=== PATIENT | female | born 1985 | race Caucasian/White ===

== ENCOUNTER 2019-11-12 01:56 | Emergency (ER) | payer OTHER, SELFPAY ==
--- NOTE | ~2019-11-12 | CT_ITS ---
EXAMINATION: CT abdomen pelvis w con DATE: 11/12/2019 03:16 INDICATION: Right flank pain. Right lower quadrant guarding. TECHNIQUE: Computed tomography (CT) of the abdomen and pelvis was performed with 100 cc Omnipaque 350 intravenous contrast. Automated exposure control and iterative reconstruction technique were employe d. Exam dose: 213.75 mGy-cm total exam DLP. COMPARISON: None. FINDINGS: The lung bases are clear. Normal heart size. No pericardial or pleural effusion. The liver, gallbladder, bile ducts, spleen, pancreas, pancreatic duct, and adrenal glands are unremar kable. No renal mass lesion is evident. There is evidence of right ascending urinary tract infection with ur othelial enhancement of the right ureter and right renal pelvis and right periureteral stranding. No evidence of pyelonephritis. No urinary tract calculus or hydroureter is evident. Normal caliber of the abdominal aorta. No intraperitoneal or retroperitoneal or pelvic mass lesion or adenopathy or ascites. There is a normal appendix. There is a prominent amount fecal material within the colon. No bowel obs truction, pneumatosis or intraperitoneal free air. The urinary bladder, uterus and adnexal areas are unremarkable. Included skeletal structures are unremarkable. IMPRESSION: Ascending urinary tract infection is suggested; no pyelonephritis is noted Normal appendix Reviewed, dictated and finalized at [facility] Reviewed, dictated and finalized at [facility].
[2019-11-12 02:00] VITALS: BP 111/50; PULSE 88; RESP 18; TEMP 36.6; O2SAT 98
[2019-11-12] MEDS: KETOROLAC 30 MG/ML VIAL (*BKC) IV PUSH (02:35)
--- NOTE | 2019-11-12 02:35 | ED.GENADULT ---
HPI - General Adult General Chief complaint: Unspecified Stated complaint: lower back pain Source: patient Mode of arrival: ambulatory Limitations: no limitations History of Present Illness HPI narrative: This 34-year-old female with opioid use disorder on Suboxone BN having right low back pain the evening of 11/09. Initially the pain was mild and intermittent. Since yesterday morning the pain has increased in intensity, described as sharp and has became constant, made worse with movements of her trunk and hip. Around midnight she tried taking a shower to see if that would help with the pain. Flexing of the right hip markedly increased pain. There is no radiation into the buttocks or lower extremity. No L.E. weakness/numbness. Around 1:00 a.m. she had about a 10 minutes episode of the mid abdominal area. The back pain has now spread to include the left side of the back but is still primarily located on the right side and right flank area. She denies fevers chills nausea vomiting diarrhea. Pain is rated 7-8/10. She is on oral contraceptives. LMP 6 1 20. 2 para 1 About a week ago dysuria frequency and urgency which resolved after about a day and half using [id number] medications. Related Data Home Medications Medication Instructions Recorded Confirmed buprenorphine-naloxone [Suboxone] 1 film BUCCAL Q24H 11/12/19 11/12/19 venlafaxine [Effexor XR] See Rx Instructions .ROUTE .COMPLEX 11/12/19 11/12/19 Allergies Allergy/AdvReac Type Severity Reaction Status Date / Time No Known Allergies Allergy Unverified 02/23/18 13:05 Review of Systems Constitutional: Constitutional: Reports no additional constitutional complaints Respiratory: Respiratory: Denies cough and Denies dyspnea Gastrointestinal: Gastrointestinal: Reports no additional gastrointestinal complaints Genitourinary: Genitourinary: Reports no additional female genitourinary complaints Musculoskeletal: Musculoskeletal: Denies arthralgias and Denies muscle cramps Integumentary/Breasts: Skin/Breast: Denies rash Neurologic: Reports system reviewed and no additional complaints, except as documented PMF Past Medical History Medical History (Updated 11/12/19 @ 04:12 by Arnold Mcguire MD) Depression Social History Social History Gender identity (if verbalized by the patient): Female Exam Narrative: Exam Narrative: Appears in pain. Stands with slight hip flexion. The fully erect position causes in creased abdominal pain. Const: Orientation/consciousness: patient oriented x3 Resp: Auscultation: clear to auscultation bilaterally GI: GI Palp: Yes Tenderness to palpation present (GI) (RLQ tenderness, maximal tenderness at McBurney's point. ), Yes Guarding due to palpation present (GI) and Yes Rebound tenderness present Auscultation: absent bowel sounds Other: Negative Rovsing and Obturator sing. : General: Yes no CVA tenderness Back/Spine/Pelvis: Other: Bilateral lumbar and thoracic paraspinal muscle contraction. Stands slightly stooped over. Able to extend back 10 degrees and flex to 30 degrees, both movements worsen RLQ pain. Skin: General skin exam: normal color Neuro: General: patient oriented x3 Course Course Emergency Course: Discussed CT scan with radiologist. Findings are c/w right sided ascending UTI. Given Levaquin Severity and 50 mg IV. Patient's PCP is Dr. murillo she has seen him before but agrees to contact him on Monday 11/13 to be seen that day. Reevaluation(s) Date: 11/12/19 Time: 04:07 Reevaluation #2: Pain has subsided after Toradol 30 mg IV. Patient has had not had vomiting. Lab results reviewed with patient. She is agreeable to return if she has vomiting fevers or chills. Vital Signs Vital signs: Vital Signs Temperature 36.6 C 11/12/19 02:00 Pulse Rate 88 11/12/19 02:00 Respiratory Rate 18 11/12/19 02:00 Blood Pressure 111/50 L 11/12/19 02:00 Pulse Oximetry 98
[2019-11-12 02:39] LABS: Basophils Absolute Auto 0.04 K/mm3 (0.00-0.10); Basophils Percent Auto 0.3 % (0.0-1.0); Eosinophils Absolute Auto 0.17 K/mm3 (0.02-0.50); Eosinophils Percent Auto 1.1 % (1.0-6.0); Hematocrit 38.4 % (35.0-49.0); Hemoglobin 12.8 g/dL (12.0-15.0); Immature Granulocyte Absolute 0.05 K/mm3 (0.00-0.00); Immature Granulocyte Percent A 0.3 % (0.0-0.0); Lymphocytes Absolute Auto 2.84 K/mm3 (1.10-4.50); Mean Corpuscular HGB Conc 33.3 g/dL (32.0-36.0); Mean Corpuscular Hemoglobin 29.8 pg (27.0-31.0); Mean Corpuscular Volume 89.5 fL (78.0-102.0); Monocytes Absolute Auto 0.93 K/mm3 (0.10-0.90); Monocytes Percent Auto 6.2 % (2.0-11.0); Neutrophils Absolute Auto 10.9 K/mm3 (1.7-7.2); Neutrophils Percent Auto 73.1 % (50.0-70.0); Platelet Count Result 474 K/mm3 (150-420); Red Blood Count 4.29 M/mm3 (4.20-5.40); Red Cell Distribution Width 12.7 % (11.6-14.4); White Blood Count 14.9 K/mm3 (4.8-10.8)
[2019-11-12 02:40] LABS: Add Urine Microscopic? YES; Appearance Urine Clear (Clear); Bilirubin Urine Negative (Negative); Blood Urine Negative (Negative); Color Urine Yellow (Yellow); Glucose Urine UA Negative (Negative); Ketones Urine Negative (Negative); Leukocyte Esterase Ur Negative (Negative); Nitrate Urine Negative (Negative); Protein Urine Trace (Negative); Specific Grav Ur 1.015 (1.010-1.020); Urobilinogen Urine 0.2 mg/dL (0.2-1.0)
[2019-11-12 02:45] LABS: Bacteria Urine Trace /hpf; Pregnancy On Board Control Positive; RBC Urine 0-2 /hpf (0-2); Specific Gravity Ur 1.015 (1.010-1.035); Squamous Epithelial Cell Urine Few /hpf (Few); Urine Pregnancy Test Negative; WBC Urine 0-3 /hpf (0-3)
[2019-11-12 02:47] LABS: Anion Gap 8.7 mmol/L (7-16); Blood Urea Nitrogen 10 mg/dL (7-18); Calcium 8.7 mg/dL (8.5-10.1); Carbon Dioxide 33 mmol/L (21-32); Chloride 98 mmol/L (98-108); Estimated CRCL calculation 69 ml/min; Estimated Glomerular Filt Rate > 60; Glucose 90 mg/dL (70-99); Osmolality Calculated 281 mOsm/kg (285-295); Potassium 3.7 mmol/L (3.5-5.1); Sodium 136 mmol/L (136-145)
[2019-11-12 04:10] VITALS: BP 112/60; PULSE 70; RESP 16; TEMP 36.1; O2SAT 100
--- NOTE | 2019-11-12 05:14 | PC.NURSE ---
at desk demanding to leave, explained with critical patient
[2019-11-12 08:35] VITALS: BP 120/81; PULSE 72; RESP 20; TEMP 36.6
== END 2019-11-12 05:37 | disposition home or self-care (01) ==
PROVIDERS: Emergency Provider Family Medicine; PCP Internal Medicine
DX: F11.10 Opioid abuse, uncomplicated (principal); N12 Tubulo-interstitial nephritis, not specified as acute or chronic
CPT/HCPCS: 36415; 74177; 80048; 81001; 81025; 85025; 87077; 87086; 87088; 87186; 96365; 96375; 99283; 99284; J1885; J1956; Q9965

== ENCOUNTER 2021-06-21 16:09 | Outpatient (CLI) | payer OTHER, SELFPAY ==
[2021-06-21 16:57] LABS: Influenza Control Valid (Valid); SARS-CoV-2 Ag Positive (Negative)
== END 2021-06-21 16:10 | disposition home or self-care (01) ==
LOC: CHSLAB 16:12
PROVIDERS: PCP Family Medicine; Visit Provider Family Medicine
DX: U07.1 COVID-19 (principal); J02.9 Acute pharyngitis, unspecified
CPT/HCPCS: 87426; 87804; C9803

== ENCOUNTER 2023-01-06 17:22 | Outpatient (CLI) | payer OTHER, SELFPAY | END 2023-01-06 17:23 | disposition home or self-care (01) | LOC: ANHLAB 17:25 | PROVIDERS: PCP Family Medicine; Visit Provider Obstetrics & Gynecology | DX: Z32.01 Encounter for pregnancy test, result positive (principal); N91.0 Primary amenorrhea | CPT/HCPCS: 36415; 84702 ==

== ENCOUNTER 2023-06-15 14:15 | Outpatient (CLI) | payer OTHER, SELFPAY ==
[2023-06-15] VITALS (7 sets, daily range): BP systolic 100–123; BP diastolic 54–67; PULSE 71–91
--- NOTE | ~2023-06-15 | US_ITS ---
EXAMINATION: US OB BPP wo non-stress DATE: 06/15/2023 17:01 INDICATION: Nonreactive nonstress test during third trimester . TECHNIQUE: Real-time pelvic ultrasound was performed. The interpreting radiologist was not present fo r the study. COMPARISON: None. FINDINGS: There is a single living fetus in breech presentation. The placenta is fundal. heart rate is 1 25 beats per minute (bpm). Biophysical profile performed by the technologist: breathing (30 sec sustained breathing in 30 minutes): 0 out of 2 movement (3 gross body movements in 30 minutes): 2 out of 2 tone (one episode of gietatk-uwgrmbsiy-peldozk limb movement): 2 out of 2 Amniotic fluid pocket (2 cm): 2 out of 2 Total score: 8 out of 8 IMPRESSION: 1. Single living fetus in breech presentation with heart rate of 125 bpm. 2. Biophysical profile 6 out of 8. A few single breathing motions were observed by the rack cleaner b ut no points given for 30 seconds sustained breathing over 30 minutes of observation. Reviewed, dictated and finalized at [facility]. R PACKER IMPRESSION: 1. Single living fetus in breech presentation with heart rate of 125 bpm. 2. Biophysical profile 6 out of 8. A few single breathing motions were observe d by the rack cleaner but no points given for 30 seconds sustained breathi ng over 30 minutes of observation.
[2023-06-15 14:55] LABS: Basophils Absolute Auto 0.1 K/mm3 (0.0-0.1); Basophils Percent Auto 0.5 % (0.2-1.2); Eosinophils Absolute Auto 0.3 K/mm3 (0-0.3); Eosinophils Percent Auto 1.6 % (0-4.4); Hematocrit 32.8 % (37.0-47.0); Immature Granulocyte Absolute 0.53 K/mm3 (0.00-0.031); Lymphocytes Absolute Auto 2.48 K/mm3 (0.9-3.2); Lymphocytes Percent Auto 14.1 % (18.3-44.2); Mean Corpuscular HGB Conc 33.5 g/dl (32-36); Mean Corpuscular Hemoglobin 31.5 pg (26-34); Mean Platelet Volume 10.8 fl (7.4-10.4); Monocytes Absolute Auto 1.1 K/mm3 (0.1-0.6); Monocytes Percent Auto 6.2 % (2.6-8.5); Neutrophils Absolute Auto 13.2 K/mm3 (1.3-6.7); Neutrophils Percent Auto 74.6 % (45.5-73.1); Platelet Count Result 290 k/mm3 (150-375); Red Blood Count 3.49 M/mm3 (4.2-5.4); White Blood Count 17.6 K/mm3 (4.5-10.0)
[2023-06-15 14:56] LABS: Appearance Urine Clear (Clear); Bilirubin Urine Negative (Negative); Blood Urine Negative (Negative); Color Urine Yellow (Yellow); Glucose Urine UA Negative (Negative); Ketones Urine Negative (Negative); Leukocyte Esterase Ur Negative LEU/UL (NEGATIVE); Nitrate Urine Negative (Negative); Protein Urine Negative (Negative); Specific Grav Ur 1.008 (1.001-1.035); Urobilinogen Urine 0.2 mg/dL (<2.0)
[2023-06-15 14:58] LABS: Add Urine Microscopic? NO
[2023-06-15 15:02] LABS: Creatinine Urine 33.5 mg/dL; Total Protein Urine Random 16 mg/dL; Ur Ttl Prot Creatinine Ratio 0.48 mg/mg (0-0.20)
[2023-06-15 15:07] LABS: Alanine Aminotransferase 26 U/L (6-35); Albumin Level 3.3 g/dL (3.5-5.1); Alkaline Phosphatase 107 U/L (38-126); Anion Gap 7 mmol/L (8-16); Aspartate Amino Transferase 26 U/L (14-36); Bilirubin,Total 0.4 mg/dL (0.2-1.3); Blood Urea Nitrogen 3 mg/dL (7-17); Calcium 8.7 mg/dL (8.4-10.2); Carbon Dioxide 23 mmol/L (22-30); Chloride 106 mmol/L (98-107); Estimated Glomerular Filt Rate > 60; Glucose 93 mg/dL (65-110); Potassium 3.7 mmol/L (3.4-5.0); Sodium 136 mmol/L (137-145)
--- NOTE | 2023-06-15 15:55 | PC.NURSE ---
Called Dr. Casillas with BPs, lab results and pt status. Informed of pt complaining of a headache x5days, and dizziness. Pt states that when she got up this AM, the room was spinning . Also informed of nonreactive NST with a variable noted and occasional contractions noted on tracing. Pt states that she only feels an occasional contraction. Orders received.
[2023-06-15] MEDS: ACETAMINOPHEN/BUTALBITAL/CAFFEINE 325-50-40 MG TABLET (FIORICET) 1 TAB PO (16:03)
--- NOTE | 2023-06-15 17:00 | PC.NURSE ---
See [facility] notes for FHTs after NST.
--- NOTE | 2023-06-15 17:15 | PC.NURSE ---
Pt states that she hasn't eaten all day. FOB went to get food. Will continue to monitor until pt eats to see if tracing becomes reactive.
--- NOTE | 2023-06-15 19:50 | PC.NURSE ---
1848- called and made aware of BPP of 11/13 as well now reactive strip and relieved H/A. orders received. ok to discharge
== END 2023-06-15 19:56 | disposition home or self-care (01) ==
LOC: ANHOBOP 14:22 → ANHOBPP 14:23
PROVIDERS: PCP Family Medicine; Visit Provider Obstetrics & Gynecology
DX: O13.9 Gestational [pregnancy-induced] hypertension without significant proteinuria, unspecified trimester (principal)
CPT/HCPCS: 36415; 59025; 76819; 80053; 81003; 82570; 84156; 84550; 85025; 87086; 87088; 99199; A9270; J2704

== ENCOUNTER 2023-07-20 06:52 | Inpatient (IN) | payer OTHER, SELFPAY ==
[2023-07-20] VITALS (25 sets, daily range): BP systolic 107–155; BP diastolic 52–85; PULSE 60–83; RESP 16–18; TEMP 36.6–37.6; O2SAT 99–100; BMI 25.8
--- NOTE | 2023-07-20 07:13 | P.PNAN_ITS ---
Anes - Initial Pre Proc Eval Procedure: Operation Date: 07/20/23 07:30 Proposed Procedures p Section - Brianna Casillas MD Date/Time: 07/20/23 07:13 Surgeon: Brianna Casillas MD Pre Op Diagnosis: Breech Presentation/C/Section Patient Data Age: 38 Gender: F Height: Weight: Last Vital Signs O2 Del Method Room Air 07/20/23 07:04 Allergies Allergy/AdvReac Type Severity Reaction Status Date / Time No Known Allergies Allergy Verified 06/24/23 13:21 Home Medications Medication Instructions Recorded Confirmed Type buprenorphine 12 mg-naloxone 3 mg 1 film buccal Q24H 11/12/19 06/24/23 History sublingual film (Suboxone) ferrous sulfate 325 mg (65 mg 325 mg PO DAILY 06/24/23 06/24/23 History iron) tablet vits no.126-ferrous fum 1 tablet PO DAILY 06/24/23 06/24/23 History 28 mg iron-folic acid 800 mcg tablet (Classic ) hydrocodone 5 mg-acetaminophen 325 1 tablet PO Q3H PRN Breakthrough 07/24/23 Rx mg tablet Pain Rated 4-6 #25 tabs ibuprofen 600 mg tablet 600 mg PO Q6H #30 tabs 07/24/23 Rx Patient hx anesthesia problems: none Family hx anesthesia problems: none Results Review: All pre-operative results and documents have been reviewed as part of the pre- operative evaluation. [facility] Past Medical History Medical History (Updated 07/24/23 @ 08:09 by Danya Higginbotham CNM) Anxiety Asthma Depression Opioid use disorder Family History Family History (Updated 06/24/23 @ 13:31 by Sarah Cosby RN) Father Rheumatoid arthritis Social History Social History Smoking status: Current every day smoker Tobacco type: cigarettes Second hand tobacco smoke exposure: No Substance use: never Do You Feel Safe in your Home?: Yes Lack of Transportation: No Lack of Food: Never True Current Housing: I Have Housing Concerned About Future Housing: No Difficulty Paying Gas/Electric Bills: No Difficulty Paying for Meds: No Currently Unemployed: No Education: Trade/Vocational Certificate Difficulty w/ Childcare or Family Care: No Gender identity (if verbalized by the patient): Female Spiritual care concerns: No Anes - Eval Final PreProcedure Day of Procedure 07/20/23 07:13 Patient weight: obese Heart: regular rate and rhythm Lungs: clear to auscultation and normal air movement Airway: Mallampati scale class II Neurological: alert and oriented Last oral intake: >/= 8 hours ASA classification: III Emergent: no Anesthetic plan: proceed Anesthesia type and monitoring: regional spinal and standard monitoring Results Review: All pre-operative results and documents have been reviewed as part of the pre- operative evaluation. Informed Consent: The patient's anesthetic plan and its attendant risks and benefits were discussed with the patient/family/POA. Questions were solicited and answers provided to the satisfaction of the patient/family/POA.
[2023-07-20 07:20] LABS: Basophils Absolute Auto 0.1 K/mm3 (0.0-0.1); Basophils Percent Auto 0.5 % (0.2-1.2); Eosinophils Absolute Auto 0.2 K/mm3 (0-0.3); Eosinophils Percent Auto 1.3 % (0-4.4); Hematocrit 42.1 % (37.0-47.0); Hemoglobin 13.6 g/dL (12.0-15.0); Immature Granulocyte Absolute 0.38 K/mm3 (0.00-0.031); Immature Granulocyte Percent A 2.3 % (0-0.5); Lymphocytes Absolute Auto 4.14 K/mm3 (0.9-3.2); Lymphocytes Percent Auto 25.2 % (18.3-44.2); Mean Corpuscular HGB Conc 32.3 g/dl (32-36); Mean Corpuscular Hemoglobin 31.1 pg (26-34); Mean Corpuscular Volume 96.1 fl (80-100); Mean Platelet Volume 11.4 fl (7.4-10.4); Monocytes Absolute Auto 1.2 K/mm3 (0.1-0.6); Monocytes Percent Auto 7.3 % (2.6-8.5); Neutrophils Absolute Auto 10.4 K/mm3 (1.3-6.7); Neutrophils Percent Auto 63.4 % (45.5-73.1); Platelet Count Result 294 k/mm3 (150-375); Red Blood Count 4.38 M/mm3 (4.2-5.4); White Blood Count 16.4 K/mm3 (4.5-10.0)
[2023-07-20] MEDS: ACETAMINOPHEN 500 MG TABLET 1000 MG PO (07:20)
[2023-07-20] MEDS: LACTATED RINGERS 1,000 ML 125 ML IV CONT (07:25)
[2023-07-20] MEDS: ONDANSETRON INJ 4 MG/2 ML VIAL IV PUSH (07:25)
[2023-07-20] MEDS: FAMOTIDINE 20 MG/2 ML VIAL IV PUSH (07:25)
--- NOTE | 2023-07-20 07:26 | PM.IMHP ---
H&P: HPI History of Present Illness Date/Time: 07/20/23 07:26 Chief Complaint: Term , breech Narrative: 38-year-old multiparous female at 39 weeks gestation with a breech presentation. we would perform delivery. She understands the procedure. Has been explained to her in detail. She understands the risk. She understands that injuries may occur the result in hospitalization, more surgery, and severe illness. She understands there is risk of hemorrhage and infection. She denies any nausea, vomiting, fever, chills. She denies any chest pain shortness of breath. Review of Systems Review of Systems: All systems reviewed & are unremarkable except as noted in HPI and below Constitutional: Constitutional: Denies chills, Denies fatigue, Denies fever(s) and Denies weakness Eyes: Eyes: Denies blurry vision, Denies change in vision, Denies loss of peripheral vision, Denies loss of vision, Denies other visual disturbances and Denies eye pain ENT: Denies vertigo, Denies dizziness, Denies hearing loss, Denies mouth pain, Denies nasal obstruction, Denies neck mass and Denies neck pain Cardiovascular: Cardiovascular: Denies chest pain, Denies diaphoresis, Denies syncope, Denies leg edema and Denies dyspnea Respiratory: Respiratory: Denies chest congestion, Denies cough, Denies hemoptysis, Denies dyspnea and Denies wheezing Gastrointestinal: Gastrointestinal: Denies abdominal pain, Denies constipation, Denies diarrhea, Denies nausea and Denies vomiting Genitourinary: Genitourinary: Denies hematuria, Denies change in libido, Denies nocturia, Denies genital lesions, Denies flank pain and Denies urinary urgency Musculoskeletal: Musculoskeletal: Denies abnormal gait, Denies back pain, Denies myalgias, Denies arthralgias, Denies joint swelling, Denies muscle weakness and Denies neck pain Integumentary/Breasts: Skin/Breast: Denies swelling, Denies breast pain, Denies breast mass, Denies dry skin, Denies nipple discharge, Denies unusual bruising and Denies jaundice Neurologic: Denies Neuro-related abnormal movements, Denies Abnormal speech present, Denies abnormal gait, Denies behavioral changes, Denies confusion, Denies vertigo, Denies dizziness, Denies syncope, Denies loss of vision, Denies memory loss, Denies convulsions and Denies weakness Psychiatric: Psychiatric: Denies abnormal sleep pattern, Denies behavioral changes, Denies change in libido, Denies confusion, Denies depression, Denies anhedonia and Denies memory loss Endocrine: Endocrine: Reports no additional endocrine complaints, Denies change in libido and Denies fatigue Hematologic/Lymphatic: Hematologic/Lymphatic: Reports no additional hematologic/lymphatic complaints Allergic/Immunologic: Allergic/Immunologic: Reports no additional allergic/immunologic complaints and Denies wheezing PMFSH Past Medical History Medical History (Updated 07/20/23 @ 07:27 by Brianna Casillas MD) Anxiety Asthma Depression Opioid use disorder Family History Family History (Updated 06/24/23 @ 13:31 by Sarah Cosby RN) Father Rheumatoid arthritis Social History Social History Smoking status: Current every day smoker Tobacco type: cigarettes Second hand tobacco smoke exposure: No Substance use: never Do You Feel Safe in your Home?: Yes Lack of Transportation: No Lack of Food: Never True Current Housing: I Have Housing Concerned About Future Housing: No Difficulty Paying Gas/Electric Bills: No Difficulty Paying for Meds: No Currently Unemployed: No Education: Trade/Vocational Certificate Difficulty w/ Childcare or Family Care: No Gender identity (if verbalized by the patient): Female Spiritual care concerns: No Meds Home Medications and Allergies Home Medications Medication Instructions Recorded Confirmed Type buprenorphine 12 mg-naloxone 3 mg 1 film buccal Q24H 11/12/19 06/24/23 History sublingual film (Suboxone) ferrous s
--- NOTE | 2023-07-20 07:29 | WPDHPUPDATE1 ---
History and Physical Update Update Date/Time: 07/20/23 07:29 History and Physical has been reviewed, including an updated exam of the patient. There are NO changes in the patient's condition. Risks, benefits, and alternatives have been discussed and questions answered. Patient agrees to proceed with procedure.
[2023-07-20] MEDS: ceFAZolin 2 GM/D5W 50 ML 2 GM/50 ML BAG IVPB (07:37)
--- NOTE | 2023-07-20 08:33 | W.PM.OBCSD ---
OB - Delivery Note Procedure Delivery date: 07/20/23 Pre-op diagnosis: Breech Presentation Post-op Diagnosis: Same Procedure Performed: Primary Surgeon: Brianna Casillas MD Anesthesia type: Spinal Description of Procedure/Findings: The patient was taken the operating room.? She was prepped and draped in dorsal supine position with a leftward tilt.? This was done after spinal anesthetic was applied.? A low-transverse skin incision was made and carried down till of the fascia with the knife.? The fascial incision was made with the knife.? The fascial incision was extended laterally with Barros scissors.? The fascia was tented upward superiorly and inferiorly the rectus muscles were dissected off bluntly.? The rectus muscles were the midline.? The preperitoneal fat and peritoneum were dissected open bluntly at the superior aspect of the rectus muscles.? The peritoneal incision was extended superior and inferior with good position of bladder.? The uterine incision was made with a scalpel down to the level of the amniotic cavity.? The amniotic cavity was entered bluntly.? The infant was delivered.? The cord was clamped and cut and the was handed off to waiting pediatric staff.? Cord bloods were obtained.? The placenta was removed manually.? The uterus was exteriorized.? The uterus was cleared of all clots, debris and membranes.? The uterus was closed in 0 Vicryl running lock fashion.? An imbricating over a was placed along the incision line as well.? The uterus was returned to the abdomen.? The gutters were cleared of all clots and debris.? The fascia was closed with 0 Vicryl running fashion.? The subcutaneous tissue was irrigated pinpoint bleeders were cauterized.? The skin was closed with subcuticular absorbable swati.? The skin incision line was covered with glue.? The patient tolerated the procedure well.? She has taken recovery room in stable condition.? Sponge lap and needle counts were correct x2.? Estimated Blood Loss: 550 Complications: No immediate complications Condition: Stable [place] Baby Weeks of gestation at delivery: 39
[2023-07-20] MEDS: OXYTOCIN 30 UNITS/NS 500 ML 30 UNITS/500 ML BAG 125 UNITS IV CONT (09:39)
[2023-07-20] MEDS: MORPHINE SULFATE INJ (*CRX) 10 MG/ML AMP 2 MG IV PUSH (09:49)
[2023-07-20 10:42] LABS: Rapid Plasma Reagin Non-Reactive (NonReactive)
[2023-07-20] MEDS: KETOROLAC 15 MG/ML VIAL (*BKC) IV PUSH ×3 (11:00→23:28)
[2023-07-20] MEDS: LIDOCAINE 5% PATCH 1 PATCH TRANSDERM (11:01)
[2023-07-20] MEDS: BUPRENORPHINE/NALOXONE (*CRX) 4 MG/1 MG SL FILM 3 EACH SUBLINGUAL (11:18)
[2023-07-20] MEDS: SIMETHICONE 80 MG TAB.CHEW PO ×3 (13:14→23:30)
[2023-07-20] MEDS: DEXTROSE 5%/0.45% SOD CHL 1,000 ML 125 ML IV CONT (14:11)
--- NOTE | 2023-07-20 15:50 | PC.NURSE ---
1420 Introductions were made, then consulted with patient to assess needs related to . Mother led the conversation with her?plans to feed?her and the?experience so far. Encouraged understanding of the benefits of skin to skin (demonstrating unwrapping infant and placing upright on her chest), stimulating with massage touch, changing positions to encourage wakefulness, how to watch for early feeding cues, responsive feeding, feeding on demand (aiming for 8-12 times in 24 hours, about every 2-3 hours), milk production, building/maintaining a milk supply, duration of feeding, signs of adequate intake/output and how to record on the feeding sheet. Mother works well with her with encouragement and education. Reviewed positioning and ear, shoulder, hip alignment, supporting the breast to facilitate a deep latch, asymmetrical latch (off-center), leading with the chin with a big, open, wide gape and body close to mother. Mother states that Infant latched optimally to the both breasts in cross cradle position. Education given to the mother of how to visualize the suckling (with good rocking jaw motion), swallows (dropping of the lower jaw) and how to listen for drinking at the breast (the ka sound). She states that was able to maintain latch without pain to mother protecting the nipple with optimal positioning and latching. Reviewed comfort measures of healing with a warm, wet washcloth to rinse breast, then leave open to air-dry, good handwashing when or touching the breast/nipples to prevent infection. Mother voiced understanding of skin to skin, stimulating with massage touch, responsive feedings, hand expressed colostrum, talking to infant to encourage if it has been 2 -2.5 hours since the start of the last , to call if infant does not latch, or if there is discomfort with . Resources used for education were facilitated with the visual educational handouts/ tool/mom and baby guide, Inpatient resources provided with business card, feeding sheet, name written on the communication board, and the mom/baby guide. Parents voiced understanding of information, demonstrated learning and will call if there is a request for assistance. Reported to the Primary RN.
[2023-07-20] MEDS: DOCUSATE SODIUM 100 MG CAPSULE PO (16:34)
[2023-07-20] MEDS: ACETAMINOPHEN 325 MG TABLET 650 MG PO (16:41)
[2023-07-20] MEDS: HYDROcodone/acetaminophen (*CRX) 10-325 MG TABLET 1 TAB PO (20:12)
[2023-07-20] MEDS: HYDROcodone/acetaminophen (*CRX) 5-325 MG TABLET 1 TAB PO (23:28)
[2023-07-21] MEDS: ACETAMINOPHEN 325 MG TABLET 650 MG PO (02:56)
[2023-07-21 05:05] VITALS: BP 123/70; PULSE 83; RESP 18; TEMP 36.8; O2SAT 97
[2023-07-21 05:07] LABS: Basophils Absolute Auto 0.1 K/mm3 (0.0-0.1); Basophils Percent Auto 0.3 % (0.2-1.2); Eosinophils Absolute Auto 0.1 K/mm3 (0-0.3); Eosinophils Percent Auto 0.4 % (0-4.4); Hematocrit 30.5 % (37.0-47.0); Immature Granulocyte Absolute 0.24 K/mm3 (0.00-0.031); Lymphocytes Absolute Auto 1.96 K/mm3 (0.9-3.2); Lymphocytes Percent Auto 8.1 % (18.3-44.2); Mean Corpuscular HGB Conc 32.8 g/dl (32-36); Mean Corpuscular Hemoglobin 31.4 pg (26-34); Mean Corpuscular Volume 95.9 fl (80-100); Mean Platelet Volume 11.1 fl (7.4-10.4); Monocytes Absolute Auto 2.3 K/mm3 (0.1-0.6); Monocytes Percent Auto 9.4 % (2.6-8.5); Neutrophils Absolute Auto 19.4 K/mm3 (1.3-6.7); Neutrophils Percent Auto 80.8 % (45.5-73.1); Platelet Count Result 247 k/mm3 (150-375); Red Blood Count 3.18 M/mm3 (4.2-5.4); Red Cell Distribution Width 13.9 % (11.5-14.5); White Blood Count 24.1 K/mm3 (4.5-10.0)
[2023-07-21] MEDS: KETOROLAC 15 MG/ML VIAL (*BKC) IV PUSH (05:53)
[2023-07-21] MEDS: HYDROcodone/acetaminophen (*CRX) 10-325 MG TABLET 1 TAB PO ×6 (05:53→23:38)
[2023-07-21 08:05] VITALS: BP 120/65; PULSE 74; RESP 16; TEMP 37; O2SAT 98
[2023-07-21] MEDS: DOCUSATE SODIUM 100 MG CAPSULE PO ×2 (08:59→17:39)
[2023-07-21] MEDS: MULTIVIT/MIN/PREN/FOL AC/IRON TABLET 1 TAB PO (08:59)
[2023-07-21] MEDS: SIMETHICONE 80 MG TAB.CHEW PO ×5 (09:00→23:38)
--- NOTE | 2023-07-21 09:03 | PM.OBPNVD ---
OB - PN: Subj Subjective Date/time seen: 07/21/23 09:03 Interval history: POD#1 Incisional pain well controlled Increased abdominal pain radiating to neck and shoulders No nausea or vomiting Has not yet passed flatus OB - PN: Obj Data Labs 07/21/23 05:00 Labs: Laboratory Results - last 24 hr 07/20/23 07/21/23 07:14 05:00 WBC 24.1 H RBC 3.18 L Hgb 10.0 L D Hct 30.5 L MCV 95.9 MCH 31.4 MCHC 32.8 RDW 13.9 Plt Count 247 MPV 11.1 H Immature Gran % (Auto) 1.0 H Neut % (Auto) 80.8 H Lymph % (Auto) 8.1 L [place] % (Auto) 9.4 H Eos % (Auto) 0.4 Baso % (Auto) 0.3 Lymph # (Auto) 1.96 [place] # (Auto) 2.3 H Eos # (Auto) 0.1 Baso # (Auto) 0.1 Abs Immat Gran (auto) 0.24 H Absolute Neuts (auto) 19.4 H Absolute Nucleated RBC 0.0 Nucleated RBC % 0.0 RPR Non-reactive OB - PN A/P Plan day: 1 Comments: Discussed abdominal pain likely from slow bowel motility, recommend ambulation, simethicone, chewing gum, light diet; monitor for nausea and vomiting; recommend decreasing narcotics as much as able as these can contribute to slowing of bowels. Time Spent With Patient Time: Total time spent is greater than 50% in coordination of care (as documented) at patient's floor/unit and/or counseling patient: Review of Systems Review of Systems: All systems reviewed & are unremarkable except as noted in HPI and below Exam Const: General: in distress mild Orientation/consciousness: patient oriented x3 Resp: Effort & Inspection: normal respiratory effort GI: GI Palp: Yes Soft to palpation Other: mildly distended, mildly tender diffusely; incision c/d/i
--- NOTE | 2023-07-21 10:15 | PC.NURSE ---
Patient brought her own pump from home. Instructions given on cleaning, care, usage, that there should be no pain, pumping schedule for milk production, collection, and storage of human milk. Patient was assessed for correct placement, flange size, to pump for comfort and nipple stretching/stimulation for adequate milk production every 3 hours (8 times in 24 hours) 1-2 times at night.
[2023-07-21] MEDS: BUPRENORPHINE/NALOXONE (*CRX) 4 MG/1 MG SL FILM 3 EACH SUBLINGUAL (11:03)
--- NOTE | 2023-07-21 12:11 | WPDANLDPN2 ---
Anes-Prog Note L&D Date/Time: 07/21/23 12:11 Comfortable throughout: section Neuraxial method: spinal Epidural/Spinal procedure site: clean & non-tender Neuro status: Neuro function grossly intact. Cardiovascular status: normal Respiratory status: normal Airway patency: baseline Mental status: baseline Post-Op hydration status: normal Vital Signs: Last Vital Signs Temp 37.0 C 07/21/23 08:05 Pulse 74 07/21/23 08:05 Resp 16 07/21/23 08:05 BP 120/65 07/21/23 08:05 Pulse Ox 98 07/21/23 08:05 O2 Del Method Room Air 07/21/23 05:05 Pain score (VAS): 310 I/O: Intake & Output 07/20/23 07/21/23 07/21/23 23:59 07:59 15:59 Intake Total 600 100 300 Output Total 1625 500 500 Balance -1025 -400 -200 Post-procedural complaints: none Patient feedback: Patient satisfied with anesthetic care.
--- NOTE | 2023-07-21 12:14 | WPDANLDNPN2 ---
Anes-Prog Note L&D-Neuraxial Date/Time: 07/21/23 12:14 Neuraxial medications: intrathecal PF morphine Opiod-related complaints: none Patient feedback: Patient satisfied with post-operative pain management.
[2023-07-21] MEDS: IBUPROFEN 600 MG TABLET PO ×2 (12:25→20:33)
--- NOTE | 2023-07-21 14:19 | PC.NURSE ---
1145 Mother verbalizes she is able to independently latch infant with appropriate positioning and alignment. She denies any nipple discomfort and is responsively . is currently meeting outcomes for weight, output, jaundice, blood sugar and feeding frequencies of 8-12 times in 24 hours. Mother declines any additional assistance at this time. Information given on breast implants and . Mother is encouraged to call for assistance if her infant doesn?t latch, pain with latching, questions or concerns. Mother voiced understanding of information shared along with the mom/baby guide for an additional resource. Reported to the Primary RN.
--- NOTE | 2023-07-21 15:45 | PCCCNOTE ---
Care Coordination met with pt. and PAULA this afternoon (07/21/23) due to referral for Suboxone use during . CC spoke with pt. who confirms Suboxone use, she states Dr. Casillas has prescribed this medication and is aware of her continuous use during . CC spoke with Dr. Casillas who confirms he has prescribed this medication for pt. for several years due to an old opiate addiction. Pt. has been sober the duration of her affiliation with Dr. Palomares office. Per Dr. Casillas, pt. has a urine drug screen every office visit and is always negative. This is patients third child, she has a 14 year old and 5 year old daughter at home. Pt. has everything needed to safely bring baby home. She has no current or closed DCFS cases. Baby has a pending umbilical cord drug screen but has not shown any signs of withdrawal at this time. RN aware of referral and visit. Will follow.
[2023-07-21] MEDS: LIDOCAINE 5% PATCH 1 PATCH TRANSDERM (15:54)
[2023-07-22] MEDS: IBUPROFEN 600 MG TABLET PO ×3 (02:43→15:40)
[2023-07-22] MEDS: HYDROcodone/acetaminophen (*CRX) 10-325 MG TABLET 1 TAB PO (02:43)
[2023-07-22] MEDS: SIMETHICONE 80 MG TAB.CHEW PO ×4 (02:43→15:36)
[2023-07-22] MEDS: HYDROcodone/acetaminophen (*CRX) 5-325 MG TABLET 1 TAB PO ×4 (05:44→19:25)
--- NOTE | 2023-07-22 07:41 | PM.GYNPNOP ---
FAITH HEALER - A/P Postoperative Procedures: Procedures Operation Date: 07/20/23 07:30 Actual Procedure Side Surgeon p Section Not Applicable Brianna Casillas MD Time Spent With Patient Time: Total time spent is greater than 50% in coordination of care (as documented) at patient's floor/unit and/or counseling patient: Time with patient: less than 15 minutes FAITH HEALER- PN:Subj Post-Op Subjective Date/time seen: 07/22/23 07:41 Interval history: POD#1 Incisional pain well controlled Increased abdominal pain radiating to neck and shoulders No nausea or vomiting Has not yet passed flatus Exam Const: General: cooperative, healthy appearing, comfortable and no acute distress Resp: Auscultation: no crackles, no rales, no rhonchi and no wheezes Cardio: Rhythm: regular rhythm Heart sounds: no click and no murmurs GI: Inspection: non-distended Auscultation: normal bowel sounds Extrem: General: normal to inspection, no pedal edema and no calf tenderness FAITH HEALER - PN: Obj Data Vital Signs Vital Signs: Vital Signs - 24 hr 07/21/23 08:05 07/21/23 20:38 Temperature 98.6 F Pulse Rate 74 Respiratory Rate 16 Blood Pressure 120/65 Pulse Oximetry 98 Oxygen Delivery Room Air Intake/Output Intake/Output: Intake & Output 07/19/23 07/20/23 07/21/23 07/22/23 23:59 23:59 23:59 23:59 Intake Total 1100 640 Output Total 2780 1350 Balance -1680 -710 Meds/Results Medications: Active Medications Generic Name Dose Route Start Last Admin Trade Name Freq PRN Reason Stop Dose Admin Acetaminophen 650 mg 07/20/23 11:40 07/22/23 03:00 Acetaminophen 325 Mg Tablet PO Not Given Q6H NOAH Hydrocodone Bitart/Acetaminophen 1 tab 07/20/23 10:40 07/22/23 02:43 Hydrocodone/Acetaminophen (*Crx) 10-325 Mg Tablet PO 1 tab Q3H PRN Administration Breakthrough Pain Rated 7-10 Hydrocodone Bitart/Acetaminophen 1 tab 07/20/23 10:40 07/22/23 05:44 Hydrocodone/Acetaminophen (*Crx) 5-325 Mg Tablet PO 1 tab Q3H PRN Administration Breakthrough Pain Rated 4-6 Bisacodyl 10 mg 02/12/24 10:40 Bisacodyl 10 Mg Suppository RECTAL ONCE PRN Constipation Buprenorphine/Naloxone 3 each 07/20/23 11:00 07/21/23 11:03 Buprenorphine/Naloxone (*Crx) 4 Mg/1 Mg Sl Film SUBLINGUAL 3 each Q24H NOAH Administration Docusate Sodium 100 mg 07/20/23 10:40 07/21/23 17:39 Docusate Sodium 100 Mg Capsule PO 100 mg BID NOAH Administration Emollient Ointment 1 applic 07/20/23 10:40 Lanolin (Lansinoh) 7.5 Gm Cream TOPICAL PRN PRN Sore Nipples Ibuprofen 600 mg 07/21/23 11:40 07/22/23 02:43 Ibuprofen 600 Mg Tablet PO 600 mg Q6H NOAH Administration Lidocaine 1 patch 07/20/23 10:40 07/21/23 15:54 Lidocaine 5% Patch TRANSDERM 1 patch DAILY PRN Administration Incision pain Morphine Sulfate 2 mg 07/20/23 10:40 Morphine Sulfate (*Crx) 2 Mg/Ml Inj IV PUSH Q4H PRN Breakthrough Pain Rated 7-10 Naloxone HCl 0.1 mg 07/20/23 10:40 Naloxone Hcl 0.4 Mg/Ml Vial IV PUSH Q2M PRN Opiate Reversal Ondansetron HCl 4 mg 07/20/23 10:40 Ondansetron Inj 4 Mg/2 Ml Vial IV PUSH Q6H PRN Nausea Vit/Calcium/Iron/Folic Ac 1 tab 07/20/23 10:40 07/21/23 08:59 Multivit/Min/Pren/Fol Ac/Iron Tablet PO 1 tab DAILY NOAH Administration Simethicone 80 mg 07/21/23 08:16 07/22/23 05:44 Simethicone 80 Mg Tab.Chew PO 80 mg Q2HR PRN Administration Gas Discomfort Zolpidem Tartrate 5 mg 07/20/23 10:40 Zolpidem Tartrate (*Crx) 5 Mg Tablet PO HS PRN Insomnia Labs 07/21/23 05:00
[2023-07-22 07:45] VITALS: BP 108/52; PULSE 76; RESP 20; TEMP 36.4; O2SAT 98
[2023-07-22] MEDS: DOCUSATE SODIUM 100 MG CAPSULE PO ×2 (08:59→15:36)
[2023-07-22] MEDS: MULTIVIT/MIN/PREN/FOL AC/IRON TABLET 1 TAB PO (08:59)
[2023-07-22] MEDS: ACETAMINOPHEN 325 MG TABLET 650 MG PO ×2 (09:00→15:36)
[2023-07-22] MEDS: TETANUS,DIPHTHERIA,AC PERTUSSIS ADULT (0.5 ML) BOOSTRIX IM (09:50)
--- NOTE | 2023-07-22 10:05 | PC.NURSE ---
On 07/22/23, the student, Jeimy Montanez, provided care and completed [facility] documentation on this patient. I have reviewed the student's documentation and agree with the findings.
[2023-07-22] MEDS: BUPRENORPHINE/NALOXONE (*CRX) 4 MG/1 MG SL FILM 3 EACH SUBLINGUAL (13:07)
--- NOTE | 2023-07-22 13:54 | PC.NURSE ---
[id number] Introductions were made and Mother is demonstrating effective on the right breast with independent latching of her infant with appropriate positioning and alignment. She denies any nipple discomfort and is responsively . is currently meeting outcomes for weight, output, jaundice, blood sugar and feeding frequencies of 8-12 times in 24 hours. Infant self detached and there was no misshaped nipple. Reinforced understanding of milk production, transition of milk, signs of adequate intake, transition of stool, prevention/relief of engorgement, plugged ducts, mastitis, responsive watching for feeding cues, the different methods of stimulating to breastfeed 1-3 hours after the start of the last feeding, community resources, medication information reviewed per [employer] and when to call a provider using the resource of the mom and baby guide. Mother voiced understanding of the education shared. Mother declines any additional assistance or education at this time. Mother is encouraged to call for assistance if her infant doesn?t latch, pain with latching, questions or concerns. Mother voiced understanding of information shared along with the mom/baby guide for an additional resource.
--- NOTE | 2023-07-22 15:36 | PC.NURSE ---
[id number] Mother is using her personal pump upon entering the room. Instructions given on cleaning, care, usage, that there should be no pain, pumping schedule for milk production, collection, and storage of human milk. Mother denies pain. Patient was assessed for correct placement, flange size, to pump for comfort and nipple stretching/stimulation for adequate milk production every 3 hours (8 times in 24 hours) 1-2 times at night. Mother pumped 45mls of breast milk. Reviewed with parents the storage guideline, protecting the milk supply, exclusively , and supplementing with EBM in a bottle. Reinforced understanding of milk production, transition of milk, signs of adequate intake, transition of stool, prevention/relief of engorgement, plugged ducts, mastitis, responsive watching for feeding cues, the different methods of stimulating infant to breastfeed 1-3 hours after the start of the last feeding, community resources, medication information reviewed per [employer] and when to call a provider using the resource of the mom and baby guide. Parents voiced understanding of the education shared.
[2023-07-22 19:51] VITALS: BP 101/57; PULSE 70; RESP 18; RESP 20; TEMP 36.4; O2SAT 100; O2SAT 98
[2023-07-23] MEDS: HYDROcodone/acetaminophen (*CRX) 5-325 MG TABLET 1 TAB PO ×5 (01:51→20:15)
[2023-07-23] MEDS: ACETAMINOPHEN 325 MG TABLET 650 MG PO (01:51)
[2023-07-23] MEDS: IBUPROFEN 600 MG TABLET PO ×4 (01:51→20:16)
[2023-07-23] MEDS: SIMETHICONE 80 MG TAB.CHEW PO ×5 (07:59→20:15)
[2023-07-23] MEDS: MULTIVIT/MIN/PREN/FOL AC/IRON TABLET 1 TAB PO (07:59)
[2023-07-23] MEDS: DOCUSATE SODIUM 100 MG CAPSULE PO ×2 (07:59→16:18)
[2023-07-23 08:55] VITALS: BP 122/77; PULSE 66; RESP 16; TEMP 37.2; O2SAT 99
[2023-07-23] MEDS: BUPRENORPHINE/NALOXONE (*CRX) 4 MG/1 MG SL FILM 3 EACH SUBLINGUAL (10:54)
--- NOTE | 2023-07-23 11:01 | PM.OBPNVD ---
OB - PN: Subj Subjective Date/time seen: 07/23/23 11:01 Interval history: POD#1 Incisional pain well controlled Increased abdominal pain radiating to neck and shoulders No nausea or vomiting Has not yet passed flatus Patient comments: no complaints, incisional pain, tolerating diet and flatus present; no pain well controlled OB - PN: Obj Data Labs 07/21/23 05:00 OB - PN A/P Plan day: 3 Plan: routine care and other Comments: continue observation and in-house pain control. Poor pain control in the incision site. Time Spent With Patient Time: Total time spent is greater than 50% in coordination of care (as documented) at patient's floor/unit and/or counseling patient: Exam Const: General: comfortable, no acute distress and alert Resp: Effort & Inspection: normal respiratory effort Auscultation: no crackles, no rales and no rhonchi Cardio: Rate: regular rate Heart sounds: no click, no murmurs and no rubs GI: Inspection: non-distended GI Palp: No Tenderness to palpation present (GI) Auscultation: normal bowel sounds Other: Incision - CDI Extrem: General: normal to inspection, no pedal edema and no calf tenderness
--- NOTE | 2023-07-23 14:45 | PC.NURSE ---
Mother is confident with her plan and it was reported that she declined needing assistance today.
[2023-07-23] MEDS: LIDOCAINE 5% PATCH 1 PATCH TRANSDERM (16:34)
[2023-07-23 20:15] VITALS: BP 136/68; PULSE 59; RESP 18; TEMP 36.8
[2023-07-24] MEDS: SIMETHICONE 80 MG TAB.CHEW PO ×4 (05:20→16:02)
[2023-07-24] MEDS: HYDROcodone/acetaminophen (*CRX) 5-325 MG TABLET 1 TAB PO ×3 (05:20→16:02)
[2023-07-24] MEDS: IBUPROFEN 600 MG TABLET PO ×2 (05:21→11:31)
--- NOTE | 2023-07-24 08:06 | PM.OBPNVD ---
OB - PN: Subj Subjective Date/time seen: 07/24/23 08:06 Interval history: POD#3 Incisional pain well controlled No nausea or vomiting flatus present OB - PN: Obj Data Labs 07/21/23 05:00 OB - PN A/P Plan day: 3 Plan: routine care and discharge home Time Spent With Patient Time: Total time spent is greater than 50% in coordination of care (as documented) at patient's floor/unit and/or counseling patient: Review of Systems Review of Systems: All systems reviewed & are unremarkable except as noted in HPI and below Exam Const: General: cooperative and healthy appearing Cardio: Rate: regular rate GI: Other: Incision CDI Skin: General skin exam: normal color
--- NOTE | 2023-07-24 08:15 | PM.OBDSVD ---
DS: Admitting Diagnosis Discharge Date 07/24/23 Admitting Diagnosis , breech DS: Discharge Diagnosis Discharge Diagnosis (1) Post-op pain: Code(s): G89.18 - Other acute postprocedural pain Status: Acute OB - DS: Summary OB Procedures : None OB Procedures Intrapartum: OB Procedures: : None Peripartum Data Procedures: Procedures Operation Date: 07/20/23 07:30 Actual Procedure Side Surgeon p Section Not Applicable Brianna Casillas MD Time Spent with Patient Time attestation: Total time spent providing and/or coordinating discharge services: Discharge Plan Discharge Attending physician on discharge: Brianna Casillas Discharging Clinician: Danya Higginbotham Patient Disposition: Home, Self-Care Activity: pelvic rest Diet: regular Patient Instructions: Antibiotic Form, How to Stop Smoking (GEN) Stand Alone Forms: General Discharge Information Follow-up/Referrals: Brianna Casillas MD [Physician] - 1 Week Discharge Medications: New hydrocodone-acetaminophen 5-325 mg Tablet 1 tablet PO Q3H PRN (Reason: Breakthrough Pain Rated 4-6) Qty: 25 0RF ibuprofen 600 mg Tablet 600 mg PO Q6H Qty: 30 0RF Continued buprenorphine-naloxone [Suboxone] 12-3 mg Film 1 film BUCCAL Q24H ferrous sulfate 325 mg (65 mg iron) Tablet 325 mg PO DAILY Classic 28 mg iron- 800 mcg Tablet 1 tablet PO DAILY Date of admission: 07/20/23 06:52 Primary Care Provider: Deven Gonsales Admitting Provider: Brianna Casillas Attending physician on admission: Brianna Casillas Condition: Stable
[2023-07-24 08:32] VITALS: BP 124/68; PULSE 73; RESP 16; TEMP 36.4; O2SAT 100
[2023-07-24] MEDS: MULTIVIT/MIN/PREN/FOL AC/IRON TABLET 1 TAB PO (09:39)
[2023-07-24] MEDS: DOCUSATE SODIUM 100 MG CAPSULE PO ×2 (09:39→16:02)
--- NOTE | 2023-07-24 15:17 | PC.NURSE ---
[id number] Mother verbalizes she is able to independently latch with appropriate positioning and alignment. She denies any nipple discomfort and is responsively . Infant is currently meeting outcomes for weight, output, jaundice, blood sugar and feeding frequencies of 8-12 times in 24 hours. Mother shared her concerns with the medication she is on as it relates to . Reviewed the risks and benefits of continuing , shared [employer] as a resource for education as mother previously stated she was reading blogs of information, and reviewed how to protect her milk supply, prevent/treat plugged ducts, mastitis with breast implants along with when to call her OB doctor. Mother is encouraged to call for assistance if her doesn?t latch, pain with latching, questions or concerns. Mother voiced understanding of information shared along with the mom/baby guide for an additional resource. Reported to the Primary RN.
== END 2023-07-24 17:00 | disposition home or self-care (01) | DRG 540 ==
LOC: ANHLDR 06:56 → ANHOB2 11:35
PROVIDERS: Admitting Provider Obstetrics & Gynecology; PCP Family Medicine; Visit Provider Obstetrics & Gynecology
PROC: 10D00Z1 Extraction of Products of Conception, Low, Open Approach (ICD-10-PCS; CPT 59514; principal; 2023-07-20 07:30)
DX: O32.1XX0 Maternal care for breech presentation, not applicable or unspecified (principal); O99.334 Smoking (tobacco) complicating childbirth; F17.210 Nicotine dependence, cigarettes, uncomplicated; O77.0 Labor and delivery complicated by meconium in amniotic fluid; O43.193 Other malformation of placenta, third trimester; Z3A.39 39 weeks gestation of pregnancy; Z37.0 Single live birth; Z23 Encounter for immunization
CPT/HCPCS: 36415; 85025; 86592; 86850; 86900; 86901; 90471; 90686; 90715; A9270; G0008; J0690; J1200; J1885; J2270; J2274; J2405; J2590; J7120